=== PATIENT | male | born 1950 | race Two or more races ===

== ENCOUNTER 2019-02-18 09:56 | Inpatient (IN) | payer SELFPAY ==
[~2019-02-18] VITALS: Ht 154.9 cm; Wt 108.0 kg
[2019-02-18 10:02] VITALS: BP 137/84
--- NOTE | 2019-02-18 10:20 | NUR ---
PT AMBULATED WITH CANE TO BED 9.
--- NOTE | 2019-02-18 10:21 | NUR ---
WAS REFFERED TO ER BY PCP W/ C/O LOWER LEFT LEG PAIN X3 MONTHS. PT ALSO NOW REPORTS INTERMITTENT CP 6/10 X 3 MONTHS WELL. DENIES N/V/D/FEVER. L LOWER EXTREMITY SWOLLEN BELOW KNEE, NO REDNESS OR WARMTH NOTED. PEDAL PULSE +2 BILAT. PT PLACED ON WORD PROCESSOR OPERATOR, HOB ELEVATED.
--- NOTE | 2019-02-18 11:06 | NUR ---
XRAY AT BEDSIDE
[2019-02-18] MEDS ORDERED: LIDOCAINE 2% 1000 MG/50 ML VIAL INJ ONE (11:13)
[2019-02-18] MEDS ORDERED: fentaNYL 0.05 MG/ML VIAL ONE (11:14)
[2019-02-18 11:25] LABS: BASOPHILS # (AUTO) 0.1 K/uL (0.00-0.22); BASOPHILS % (AUTO) 0.7 % (0.0-2.0); EOSINOPHILS # (AUTO) 0.3 K/uL (0-0.4); EOSINOPHILS % (AUTO) 3.3 % (0.0-4.0); HEMATOCRIT 46.2 % (36-52); LYMPHOCYTES # (AUTO) 2.5 K/uL (2.0-11.5); LYMPHOCYTES % (AUTO) 30.1 % (20.5-51.1); MEAN CORPUSCULAR HEMOGLOBIN 32 pg (27-31); MEAN CORPUSCULAR HGB CONC 35 g/dL (33-37); MEAN CORPUSCULAR VOLUME 93.8 fL (80-94); MONOCYTES # (AUTO) 0.6 K/uL (0.8-1.0); MONOCYTES % (AUTO) 7.3 % (1.7-9.3); NEUTROPHILS # (AUTO) 4.8 K/uL (1.8-7.7); NEUTROPHILS % (AUTO) 58.6 % (42.2-75.2); PLATELET COUNT (AUTO) 278 K/uL (140-450); RED BLOOD CELL COUNT(AUTO) 4.93 MIL/uL (4.20-6.10); RED CELL DISTRIBUTION WIDTH 12.7 % (11.6-13.7); WHITE BLOOD COUNT (AUTO) 8.2 K/uL (4.8-10.8)
[2019-02-18 11:37] LABS: ANION GAP 13.7 (8-16); CARBON DIOXIDE 25.3 mmol/L (21-32); CREATININE 0.8 mg/dL (0.7-1.3)
[2019-02-18 11:43] LABS: ALBUMIN 3.6 g/dL (3.4-5.0); TOTAL BILIRUBIN 0.6 mg/dL (0.0-1.0)
--- NOTE | 2019-02-18 12:00 | NUR ---
PT RESTING IN BED
[2019-02-18] MEDS ORDERED: ASPI-1718 PO (13:03)
[2019-02-18] MEDS ORDERED: ATOR40TA PO (13:03)
[2019-02-18] MEDS ORDERED: METF1000 PO (13:03)
[2019-02-18] MEDS: NACL 0.9% 1,000 ML IV SCH (13:04)
[2019-02-18] MEDS ORDERED: HYDROcodone/APAP 7.5/325 MG 1 TAB PO PRN (13:05)
[2019-02-18] MEDS ORDERED: ACETAMINOPHEN 325 MG TAB PO PRN (13:05)
[2019-02-18] MEDS ORDERED: ONDANSETRON 4 MG/2 ML VIAL IVP PRN (13:05)
--- NOTE | 2019-02-18 13:05 | NUR ---
PT RESTING IN BED, NO NEW NEEDS AT THIS TIME
[2019-02-18] MEDS ORDERED: NITROGLYCERIN 0.4 MG TAB SL PRN (13:30)
[2019-02-18] MEDS ORDERED: DEXTROSE 50% 50 ML SYR IVP PRN (13:30)
[2019-02-18 13:39] LABS: PROTHROMBIN TIME 9.5 secs (10.8-13.4)
[2019-02-18 13:40] VITALS: BP 111/70
--- NOTE | 2019-02-18 13:40 | NUR ---
RECEIVED BEDSIDE REPORT FROM ER NURSE. PATIENT ON TELE MONITOR AND STANDARD PRECAUTIONS IN PLACE. PATIENT AAOX4 AND COMMUNICATES APPROPRIATELY. PATIENT ON ROOM AIR, NO DISTRESS NOTED. SKIN INTACT. AMBULATES WITH CANE AT BEDSIDE. IV ON R AC 20 G INFUSING NS AT 50, IV ASYMPTOMATIC PATENT AND INTACT. BED IN LOW POSITION, CALL LIGHT WITHIN REACH, SIDE RAILS X2 UP
--- NOTE | 2019-02-18 13:48 | NUR ---
Patient will be admitted to care of DR CHU. Admited to [facility]. Will go to room 127A. Belongings list completed. Report to RAHEEL MARTIN.
[2019-02-18 14:02] LABS: FREE T4 (FREE THYROXINE) 1.03 ng/dL (0.76-1.46); MAGNESIUM 2.4 mg/dL (1.8-2.4); PHOSPHORUS 2.7 mg/dL (2.5-4.9); THYROID STIMULATING HORMONE 2.84 uIU/mL (0.34-3.74)
--- NOTE | 2019-02-18 15:00 | NUR ---
PATIENT EATING SANDWICH REQUESTED, ON ROOM AIR, NO DISTRESS NOTED
[2019-02-18 16:00] VITALS: BP 118/69
[2019-02-18] MEDS: BLOOD GLUCOSE MONITORING 1 DEV DEV FS SCH ×2 (16:30→21:01)
[2019-02-18] MEDS: metFORMIN 500 MG TAB PO SCH (17:36)
[2019-02-18] MEDS: INSULIN LISPRO SLIDING SCALE 100 UNITS/ML VIAL SUBQ PRN ×2 (17:37→21:04)
--- NOTE | 2019-02-18 17:39 | NUR ---
ADMINISTERED SCHEDULED MEDS. PATIENT TOLERATED WELL, WILL CONTINUE TO MONITOR
--- NOTE | 2019-02-18 19:29 | NUR ---
BEDSIDE REPORT GIVEN TO MARIO MCCARTY. PATIENT ENDORSED IN STABLE CONDITION
--- NOTE | 2019-02-18 19:30 | NUR ---
RECEIVED REPORT FROM DAY SHIFT NURSE RAHEEL-RN AT BEDSIDE. PT RESTING IN BED, AOX4- GREENLANDIC SPEAKING, ON ROOM AIR WITH RIGHT AC #20G. DISCUSSED PLAN OF CARE AND PT VERBALIZED UNDERSTANDING. NO S/S OF RESPIRATORY DISTRESS OR DISCOMFORT NOTED AT THIS TIME. BED IN LOWEST POSITION, BED BREAKS ON, BOTH SIDE RAILS UP AND FALL PRECAUTIONS IN PLACE. BEDSIDE TABLE AND CALL LIGHT ARE WITHIN REACH. WILL CONTINUE TO MONITOR.
[2019-02-18] MEDS ORDERED: NACL 0.9% 1,500 ML IV ONE (20:00)
--- NOTE | 2019-02-18 20:00 | NUR ---
VITAL SIGNS TAKEN AND TOLERATED WELL. BLOOD GLUCOSE 154- WILL ADMINISTER INSULIN COVERAGE. NO S/S OF RESPIRATORY DISTRESS OR DISCOMFORT NOTED AT THIS TIME. WILL CONTINUE TO MONITOR.
[2019-02-18] MEDS ORDERED: ATORVASTATIN 20 MG TAB PO SCH (21:00)
[2019-02-18] MEDS: METOPROLOL 25 MG TAB PO SCH (21:02)
[2019-02-18] MEDS: DOCUSATE SODIUM 100 MG GELCAP PO SCH (21:02)
--- NOTE | 2019-02-18 21:04 | NUR ---
SCHEDULED MEDICATIONS GIVEN, INSULIN COVERAGE GIVEN AND TOLERATED WELL. PT C/O LEFT KNEE PAIN 02/18- NORCO GIVEN FOR PAIN AND TOLERATED WELL. NO S/S OF RESPIRATORY DISTRESS OR DISCOMFORT NOTED AT THIS TIME. WILL CONTINUE TO MONITOR.
[2019-02-18 21:55] VITALS: BP 111/63
--- NOTE | 2019-02-18 22:00 | NUR ---
PT SLEEPING IN BED. NO S/S OF RESPIRATORY DISTRESS OR DISCOMFORT NOTED AT THIS TIME. WILL CONTINUE TO MONITOR.
[2019-02-19] VITALS: BP 103/49
--- NOTE | 2019-02-19 | NUR ---
VITAL SIGNS TAKEN AND TOLERATED WELL. NO S/S OF RESPIRATORY DISTRESS OR DISCOMFORT NOTED AT THIS TIME. WILL CONTINUE TO MONITOR.
[2019-02-19] MEDS: NACL 0.9% 1,000 ML IV SCH ×2 (01:53→21:00)
--- NOTE | 2019-02-19 02:00 | NUR ---
PT CONTINUES TO SLEEP IN BED. NO S/S OF RESPIRATORY DISTRESS OR DISCOMFORT NOTED AT THIS TIME. WILL CONTINUE TO MONITOR.
[2019-02-19 04:00] VITALS: BP 116/73
--- NOTE | 2019-02-19 04:00 | NUR ---
VITAL SIGNS TAKEN AND TOLERATED WELL. NO S/S OF RESPIRATORY DISTRESS OR DISCOMFORT NOTED AT THIS TIME. WILL CONTINUE TO MONITOR.
--- NOTE | 2019-02-19 06:00 | NUR ---
BLOOD GLUCOSE 119- NO INSULIN COVERAGE NEEDED. NO S/S OF RESPIRATORY DISTRESS OR DISCOMFORT NOTED AT THIS TIME. WILL CONTINUE TO MONITOR.
[2019-02-19] MEDS: BLOOD GLUCOSE MONITORING 1 DEV DEV FS SCH ×4 (06:54→20:40)
--- NOTE | 2019-02-19 07:19 | NUR ---
ENDORSED PT CARE TO DAY SHIFT NURSE STU MARSHALL FOR CONTINUITY OF CARE.
--- NOTE | 2019-02-19 07:20 | NUR ---
RECEIVED BEDSIDE REPORT FROM MARIO MCCARTY. PT STABLE, AWAKE, ALERT AND ORIENTED X4. NO SIGNS OF DISTRESS NOTED. DENIES PAIN OR SOB. NO REDNESS, SWELLING, OR INFLAMMATION NOTED ON IV SITE. CALL SRINIVASAN WITHIN REACH. BED IN LOWEST POSITION. SAFETY MEASURES IN PLACE. PLAN OF CARE REVIEWED.
[2019-02-19 07:55] LABS: BASOPHILS # (AUTO) 0.1 K/uL (0.00-0.22); BASOPHILS % (AUTO) 0.7 % (0.0-2.0); EOSINOPHILS # (AUTO) 0.3 K/uL (0-0.4); EOSINOPHILS % (AUTO) 3.6 % (0.0-4.0); HEMATOCRIT 44.1 % (36-52); HEMOGLOBIN 15.2 g/dL (12.0-18.0); LYMPHOCYTES # (AUTO) 2.7 K/uL (2.0-11.5); LYMPHOCYTES % (AUTO) 33.1 % (20.5-51.1); MEAN CORPUSCULAR HEMOGLOBIN 32 pg (27-31); MEAN CORPUSCULAR HGB CONC 34 g/dL (33-37); MEAN CORPUSCULAR VOLUME 94.2 fL (80-94); MONOCYTES # (AUTO) 0.5 K/uL (0.8-1.0); NEUTROPHILS # (AUTO) 4.7 K/uL (1.8-7.7); NEUTROPHILS % (AUTO) 56.6 % (42.2-75.2); PLATELET COUNT (AUTO) 265 K/uL (140-450); RED BLOOD CELL COUNT(AUTO) 4.69 MIL/uL (4.20-6.10); RED CELL DISTRIBUTION WIDTH 12.9 % (11.6-13.7); WHITE BLOOD COUNT (AUTO) 8.2 K/uL (4.8-10.8)
[2019-02-19 08:00] VITALS: BP 127/77
[2019-02-19 08:00] LABS: ANION GAP 15.3 (8-16); CARBON DIOXIDE 23.4 mmol/L (21-32); CREATININE 0.7 mg/dL (0.7-1.3); POTASSIUM 3.7 mmol/L (3.5-5.1)
[2019-02-19 08:12] LABS: MAGNESIUM 2.1 mg/dL (1.8-2.4); PHOSPHORUS 3.6 mg/dL (2.5-4.9)
[2019-02-19 08:16] LABS: CHOL/HDL RATIO 3.9 (1-4.5)
[2019-02-19] MEDS ORDERED: PANTOPRAZOLE 40 MG INJ VIAL IVP SCH (09:00)
[2019-02-19] MEDS: METOPROLOL 25 MG TAB PO SCH ×2 (09:11→20:55)
[2019-02-19] MEDS: LISINOPRIL 5 MG TAB PO SCH (09:11)
[2019-02-19] MEDS: metFORMIN 500 MG TAB PO SCH ×2 (09:11→16:34)
[2019-02-19] MEDS: DOCUSATE SODIUM 100 MG GELCAP PO SCH ×2 (09:12→20:55)
[2019-02-19] MEDS: ATORVASTATIN 20 MG TAB PO SCH (09:12)
[2019-02-19] MEDS: ASPIRIN 81 MG TAB.CHEW PO SCH (09:12)
--- NOTE | 2019-02-19 09:23 | NUR ---
ADMINISTERED SCHEDULED MEDICATIONS, PT TOLERATED WELL. NO OTHER NEEDS AT THIS TIME.
[2019-02-19 11:41] LABS: APPEARANCE,URINE CLEAR (CLEAR); BILIRUBIN,URINE NEGATIVE (NEGATIVE); BLOOD, URINE NEGATIVE (NEGATIVE); COLOR,URINE YELLOW (YELLOW); LEUKOCYTE ESTERASE ,URINE NEGATIVE (NEGATIVE); NITRITE, URINE NEGATIVE (NEGATIVE); UGLUCOSE NEGATIVE (NEGATIVE)
[2019-02-19 11:43] LABS: BARBITURATE, URINE NEG. ng/ml (NEG <=200); BENZODIAZEPINE, URINE NEG. ng/mL (NEG <=200); CANNABINOID, URINE NEG. ng/mL (NEG <=50); COCAINE, URINE NEG. ng/mL (NEG <=300); OPIATE, URINE NEG. ng/mL (NEG <=2000); PHENCYCLIDINE SCREEN,URINE NEG. ng/mL (NEG <=25)
[2019-02-19 12:00] VITALS: BP 118/74
--- NOTE | 2019-02-19 12:10 | NUR ---
VITAL SIGNS TAKEN, PT STABLE.
--- NOTE | 2019-02-19 13:13 | NUR ---
FAMILY AT BEDSIDE.
--- NOTE | 2019-02-19 15:30 | NUR ---
VITAL SIGNS TAKEN, PT STABLE. PT SITTING AT THE BEDSIDE READING A BOOK. NO OTHER NEEDS AT THIS TIME.
[2019-02-19 16:00] VITALS: BP 118/72
--- NOTE | 2019-02-19 16:39 | NUR ---
ADMINISTERED SCHEDULED METFORMIN, PT TOLERATED WELL. BLOOD GLUCOSE CHECKED, 117, NO COVERAGE NEEDED.
--- NOTE | 2019-02-19 17:08 | NUR ---
PT STABLE, TALKING TO FAMILY AT THE BEDSIDE. NO OTHER NEEDS AT THIS TIME.
--- NOTE | 2019-02-19 19:15 | NUR ---
ENDORSED PT TO MARIO WINTERS FOR CONTINUITY OF CARE. PT STABLE.
--- NOTE | 2019-02-19 19:16 | NUR ---
REPORT RECEIVED FROM AM NURSE AT BEDSIDE. PT IN STABLE CONDITION. AAOX4. INTRODUCED SELF TO PT. BOARD UPDATED. NO COMPLAINTS OF PAIN. NO SOB. AFEBRILE. IV R AC 20G RUNNING NS@50ML/HR PATENT AND INTACT. SKIN WARM, DRY, AND INTACT WITH NO OPEN WOUNDS. BED LOCKED IN LOW POSITION. CALL SRINIVASAN WITHIN REACH. SAFETY PRECAUTIONS IN PLACE. ALL NEEDS MET AT THIS TIME.
[2019-02-19 20:00] VITALS: BP 117/76
--- NOTE | 2019-02-19 20:30 | NUR ---
PT LAYING IN BED NO SIGNS OF DISTRESS OR DISCOMFORT. NO PAIN AT THIS TIME. FAMILY MEMBER AT BEDSIDE. BED IN LOW POSITION. CALL LIGHT WITHIN REACH. WILL CONTINUE TO MONITOR.
--- NOTE | 2019-02-19 20:59 | NUR ---
ADMINISTERED MEDS SCHEDULED. EDUCATED ON SIDE EFFECTS. VERBALIZED UNDERSTANDING. TOLERATED WELL. WILL CONTINUE TO MONITOR. NO COMPLAINTS AT THIS TIME.
--- NOTE | 2019-02-19 23:02 | NUR ---
PT SLEEPING IN BED. NO DISTRESS NOTED. EASILY AROUSABLE. NO COMPLAINTS AT THIS TIME. WILL CONTINUE TO MONITOR.
[2019-02-20] VITALS: BP 105/56
--- NOTE | 2019-02-20 00:05 | NUR ---
BEDSIDE REPORT GIVEN TO REILLY MARTIN. PT IN STABLE CONDITION.
--- NOTE | 2019-02-20 00:06 | NUR ---
PT RESTING IN BED. NO S/S OF RESPIRATORY DISTRESS OR DISCOMFORT NOTED AT THIS TIME. WILL CONTINUE TO MONITOR.
--- NOTE | 2019-02-20 02:00 | NUR ---
PT SLEEPING IN BED. NO S/S OF RESPIRATORY DISTRESS OR DISCOMFORT NOTED AT THIS TIME. WILL CONTINUE TO MONITOR.
[2019-02-20 04:00] VITALS: BP 116/60
--- NOTE | 2019-02-20 04:00 | NUR ---
VITAL SIGNS TAKEN AND TOLERATED WELL. NO S/S OF RESPIRATORY DISTRESS OR DISCOMFORT NOTED AT THIS TIME. WILL CONTINUE TO MONITOR.
--- NOTE | 2019-02-20 05:45 | NUR ---
PATIENT HAS BEEN SCREENED AND CATEGORIZED HIGH NUTRITION RISK. PATIENT WILL BE SEEN WITHIN 1-2 DAYS OF ADMISSION. 02/19/19-02/20/19 GIOVANNA DONOHUE MS, RDN
--- NOTE | 2019-02-20 06:09 | NUR ---
SCHEDULED MEDICATION PROTONIX GIVEN AND TOLERATED WELL. NO S/S OF RESPIRATORY DISTRESS OR DISCOMFORT NOTED AT THIS TIME. WILL CONTINUE TO MONITOR.
[2019-02-20] MEDS: BLOOD GLUCOSE MONITORING 1 DEV DEV FS SCH ×3 (06:11→16:30)
--- NOTE | 2019-02-20 06:11 | NUR ---
BLOOD GLUCOSE 135- NO INSULIN COVERAGE NEEDED. NO S/S OF RESPIRATORY DISTRESS OR DISCOMFORT NOTED AT THIS TIME. WILL CONTINUE TO MONITOR.
[2019-02-20] MEDS ORDERED: PANTOPRAZOLE 40 MG TABEC PO SCH (06:30)
[2019-02-20] MEDS ORDERED: PANT40EC28 PO (06:46)
--- NOTE | 2019-02-20 07:19 | NUR ---
ENDORSED PT CARE TO DAY SHIFT NURSE WEST FOR CONTINUITY OF CARE.
--- NOTE | 2019-02-20 07:20 | NUR ---
RECEIVED PT FROM MOLDER SWEEP NURSEBIBIANA, PT IS AWAKE AND LYING ON THE BED, WITH SIDE RAILS UP AND CALL LIGHT WITHIN REACH, PT HAS AN IV LINE ON THE RT FA G. 22 WITH NS AT 50ML/HR INFUSING, PT DENIES PAIN AT THIS TIME AND NO SIGN OF DISTRESS NOTED. WILL MONITOR PT.
--- NOTE | 2019-02-20 07:25 | NUR ---
PT IS AWAKE AND SEATED ON THE BED, VITAL SIGNS TAKEN , BP IS 129/80, PULSE IS 66, O2 SATURATION IS 96%, TEMPERATURE IS 98 AND RESPIRATION IS 18/MIN, NO SIGN OF DISTRESS NOTED AND WILL MONITOR PT.
[2019-02-20 08:00] VITALS: BP 129/80
[2019-02-20] MEDS: ASPIRIN 81 MG TAB.CHEW PO SCH (10:05)
[2019-02-20] MEDS: ATORVASTATIN 20 MG TAB PO SCH (10:06)
[2019-02-20] MEDS: DOCUSATE SODIUM 100 MG GELCAP PO SCH (10:06)
[2019-02-20] MEDS: metFORMIN 500 MG TAB PO SCH ×2 (10:06→17:00)
[2019-02-20] MEDS: METOPROLOL 25 MG TAB PO SCH (10:07)
[2019-02-20] MEDS: LISINOPRIL 5 MG TAB PO SCH (10:07)
--- NOTE | 2019-02-20 10:15 | NUR ---
PT IS AWAKE AND SEATED ON THE EBD, VITAL SIGNS CHECKED AND BP IS 117/63, PULSE IS 78, ORAL MEDICATIONS WERE GIVEN AND PT TOLERATED IT, MEDICATION VIA SUBQ WAS GIVEN WELL, NO SIGN OF DISTRESS NOTED AND WILL MONITOR PT.
--- NOTE | 2019-02-20 11:00 | NUR ---
02/20/19 RD INITIAL ASSESSMENT COMPLETED PLEASE REFER TO NUTRITION ASSESSMENT UNDER CARE ACTIVITY FOR ESTIMATED NUTRITIONAL NEEDS. RD RECOMMENDATIONS: 1. CONTINUE CCHO 60 GM DIET TOLERATED. 2. RD WILL F/U 3-5 DAYS; MODERATE RISK. GIOVANNA DONOHUE MS, RDN
[2019-02-20] MEDS: INSULIN LISPRO SLIDING SCALE 100 UNITS/ML VIAL SUBQ PRN (11:59)
[2019-02-20 12:00] VITALS: BP 110/67
--- NOTE | 2019-02-20 12:00 | NUR ---
PT IS AWAKE AND BLOOD GLUCOSE CHECK DONE AND RESULT IS 157, INSULIN 2 UNITS WAS GIVEN ON THE LEFT UA AND PT TOLERATED IT. NO SIGN OF DISTRESS NOTED AND WILL MONITOR PT.
[2019-02-20 16:00] VITALS: BP 113/68
--- NOTE | 2019-02-20 16:45 | NUR ---
PT WAS GIVEN DISCHARGED INSTRUCTIONS PER THE ASSISTANCE OF A SPINNERET CLEANER, MAMTA, # [id number] AND PT VERBALIZED UNDERSTANDING.
--- NOTE | 2019-02-20 17:00 | NUR ---
DISCHARGED PT VIA WHEELCHAIR WITH SON, INSTRUCTIONS AND TEACHINGS WERE GIVEN PER PATIENT INSURANCE CLERK #[id number] AND PT VERBALIZED UNDERSTANDING. IV AND ARM BAND REMOVED, VITAL SIGNS CHECKED AND BP IS 113/68, PULSE IS 79, RESPIRATION IS 16/MIN, O2 SATURATION IS 96% AND TEMPERATURE IS 98, PT IS STABLE AT THIS TIME.
== END 2019-02-20 17:00 | disposition home or self-care (01) | DRG 392 ==
LOC: MED 09:56 → MMU 13:24
PROVIDERS: ADMIT General Practice; ATTEND General Practice
DX: K21.9 Gastro-esophageal reflux disease without esophagitis (principal); Z68.42 Body mass index [BMI] 45.0-49.9, adult; I10 Essential (primary) hypertension; E78.00 Pure hypercholesterolemia, unspecified; E78.5 Hyperlipidemia, unspecified; E66.01 Morbid (severe) obesity due to excess calories; E11.65 Type 2 diabetes mellitus with hyperglycemia; M17.12 Unilateral primary osteoarthritis, left knee; M25.462 Effusion, left knee; Z79.82 Long term (current) use of aspirin; Z79.84 Long term (current) use of oral hypoglycemic drugs
CPT/HCPCS: 36415; 71045; 73562; 80048; 80053; 80305; 81003; 82150; 82948; 83036; 83605; 83690; 83735; 83880; 84100; 84439; 84443; 84484; 85025; 85610; 85730; 87081; 93005; 93971; 99285; C9113; J1644; J1815; J2001; J3010; J7030; Q0092